=== PATIENT | male | born 1975 | race Caucasian/White ===

== ENCOUNTER 2020-10-10 08:00 | Emergency (ER) | payer OTHER ==
[~2020-10-10 08:00] MED LIST: AZITHROMYCIN250 MG PO; NORCO 5-325 TA1 EACH PO
[2020-10-10 08:37] LABS: BASOPHIL 0.8 % (0-2); EOSINOPHIL 2.8 % (0-5); HCT 42.5 % (42.0-52.0); HGB 13.5 g/dl (13.2-18.0); LYMPHOCYTE 30.3 % (15-48); MCH 26.9 pg (25.0-31.0); MCHC 31.8 g/dL (32.0-36.0); MCV 84.7 fL (78.0-100.0); MONOCYTE 6.7 % (0-12); MPV 9.3 fL (6.0-9.5); NEUTROPHIL 58.8 % (41-80); NRBC 0; PLT 240 K/uL (150-400); RBC 5.02 M/uL (4.70-6.00); RDW 14.7 % (11.5-14.0); WBC 6.5 K/uL (4.0-10.5)
[2020-10-10 08:51] LABS: ALBUMIN 3.7 g/dL (3.4-5.0); BILIRUBIN - TOTAL 0.4 mg/dL (0.2-1.0); BUN/CREAT RATIO (CALC) 18.4 RATIO; CREATININE 0.87 mg/dL (0.67-1.17); GLOBULIN (CALCULATION) 3.9 g/dL; POTASSIUM 3.2 mmol/L (3.5-5.1); TOTAL PROTEIN 7.6 g/dL (6.4-8.2)
[2020-10-10 09:35] LABS: CORONAVIRUS 2019 SARS-COV-2 NEGATIVE (NEGATIVE); INFLUENZA A NAA NEGATIVE (NEGATIVE)
[2020-10-10] MEDS ORDERED: ONDANSETRON ODT4 MG PO (09:55)
== END 2020-10-10 10:15 | disposition home or self-care (01) ==
LOC: FER 08:00
PROVIDERS: Emergency Medicine
DX: B34.9 Viral infection, unspecified (principal); F17.210 Nicotine dependence, cigarettes, uncomplicated; Z20.822 Contact with and (suspected) exposure to COVID-19
CPT/HCPCS: 36415; 71045; 80053; 84484; 85025; 93005; J1885; J2405; J7030; U0002

== ENCOUNTER 2021-04-04 18:48 | Emergency (ER) | payer OTHER ==
[~2021-04-04 18:48] MED LIST changes: +ONDANSETRON ODT4 MG PO
[2021-04-04 19:19] LABS: BASOPHIL 0.6 % (0-2); EOSINOPHIL 3.1 % (0-5); HGB 15.4 g/dl (13.2-18.0); LYMPHOCYTE 30.2 % (15-48); MCH 27.7 pg (25.0-31.0); MCHC 32.8 g/dL (32.0-36.0); MCV 84.7 fL (78.0-100.0); MONOCYTE 9.6 % (0-12); MPV 9.5 fL (6.0-9.5); NEUTROPHIL 56.2 % (41-80); NRBC 0; PLT 346 K/uL (150-400); RBC 5.55 M/uL (4.70-6.00); RDW 14.5 % (11.5-14.0); WBC 6.4 K/uL (4.0-10.5)
[2021-04-04 19:34] LABS: LACTIC ACID 1.2 mmol/L (0.4-1.9)
[2021-04-04 19:39] LABS: ALBUMIN 4.5 g/dL (3.4-5.0); BILIRUBIN - TOTAL 0.6 mg/dL (0.2-1.0); BUN/CREAT RATIO (CALC) 13.1 RATIO; CREATININE 1.45 mg/dL (0.67-1.17); GLOBULIN (CALCULATION) 3.8 g/dL; MAGNESIUM 2.2 mg/dL (1.8-2.4); PHOSPHORUS 3.8 mg/dL (2.6-4.7); POTASSIUM 3.4 mmol/L (3.5-5.1); TOTAL PROTEIN 8.3 g/dL (6.4-8.2)
[2021-04-04 21:32] LABS: BILIRUBIN NEGATIVE (NEGATIVE); BLOOD NEGATIVE Ery/uL (NEGATIVE); CLARITY CLEAR (CLEAR); COLOR YELLOW (YELLOW); GLUCOSE (U) NORMAL (NORMAL); LEUKOCYTES NEGATIVE Leu/uL (NEGATIVE); NITRITE NEGATIVE (NEGATIVE); PROTEIN NEGATIVE (NEGATIVE); UROBILINOGEN 0.2 mg/dL (0.2-1.0)
== END 2021-04-04 22:45 | disposition home or self-care (01) ==
LOC: FER 18:48
PROVIDERS: Emergency Medicine Emergency Medical Services
DX: T67.2XXA Heat cramp, initial encounter (principal); E86.0 Dehydration; E87.6 Hypokalemia; F32.9 Major depressive disorder, single episode, unspecified; F17.210 Nicotine dependence, cigarettes, uncomplicated; R07.9 Chest pain, unspecified; E78.5 Hyperlipidemia, unspecified; Z90.49 Acquired absence of other specified parts of digestive tract; Z79.899 Other long term (current) drug therapy; X30.XXXA Exposure to excessive natural heat, initial encounter
CPT/HCPCS: 36415; 70450; 71045; 80053; 81003; 82550; 83605; 83735; 84100; 84484; 85025; 85379; 93005; J2270; J2405; J7120

== ENCOUNTER 2021-10-28 21:06 | Emergency (ER) | payer OTHER ==
[2021-10-28 21:45] LABS: BASOPHIL 1.1 % (0-2); EOSINOPHIL 3.5 % (0-5); HCT 42.2 % (42.0-52.0); HGB 13.5 g/dl (13.2-18.0); MCH 29.2 pg (25.0-31.0); MCV 91.3 fL (78.0-100.0); MONOCYTE 7.3 % (0-12); MPV 9.6 fL (6.0-9.5); NRBC 0; PLT 265 K/uL (150-400); RBC 4.62 M/uL (4.70-6.00); RDW 14.6 % (11.5-14.0); WBC 7.4 K/uL (4.0-10.5)
[2021-10-28 21:58] LABS: ALBUMIN 4.3 g/dL (3.4-5.0); BILIRUBIN - TOTAL 0.4 mg/dL (0.2-1.0); BUN/CREAT RATIO (CALC) 21.6 RATIO; CREATININE 0.88 mg/dL (0.67-1.17); POTASSIUM 3.7 mmol/L (3.5-5.1); TOTAL PROTEIN 7.3 g/dL (6.4-8.2)
[2021-10-29] MEDS ORDERED: CARAFATE1 GM PO (00:21)
[2021-10-29] MEDS ORDERED: DEXILANT30 MG PO (00:21)
== END 2021-10-29 00:38 | disposition home or self-care (01) ==
LOC: FER 21:06
PROVIDERS: Emergency Medicine Emergency Medical Services
DX: K21.9 Gastro-esophageal reflux disease without esophagitis (principal); F17.210 Nicotine dependence, cigarettes, uncomplicated; Z20.822 Contact with and (suspected) exposure to COVID-19
CPT/HCPCS: 36415; 71045; 80053; 83690; 84484; 85025; 93005; U0002